=== PATIENT | male | born 1945 | race Caucasian/White ===

== ENCOUNTER 2016-07-20 18:35 | Emergency (ER) | payer MEDICARE ==
[2016-07-20 20:08] LABS: HEMOGLOBIN 11.6 gm/dl (14.0-17.5); RED BLOOD COUNT 3.86 M/UL (4.20-5.50); WHITE BLOOD COUNT 15.6 K/UL (4.5-11.0)
== END 2016-07-20 21:22 | disposition home or self-care (01) ==
LOC: ER1 18:35
PROVIDERS: Emergency Medicine
DX: T78.3XXA Angioneurotic edema, initial encounter (principal); T50.995A Adverse effect of other drugs, medicaments and biological substances, initial encounter
CPT/HCPCS: 80048; 85025; 96374; 96375; 99283; J1100; J1200; J7030

== ENCOUNTER 2016-07-21 23:15 | Inpatient (IN) | payer MEDICARE ==
[~2016-07-21] VITALS: Ht 185.4 cm; Wt 124.7 kg
[2016-07-22 04:30] LABS: HEMOGLOBIN 11.7 gm/dl (14.0-17.5); RED BLOOD COUNT 3.85 M/UL (4.20-5.50)
[2016-07-22] MEDS ORDERED: TOUJEO SQ (09:30)
[2016-07-22] MEDS ORDERED: FERREX 150150 MG PO (09:33)
[2016-07-22] MEDS ORDERED: LISINOPRIL20 MG PO (09:34)
[2016-07-22] MEDS ORDERED: ELIQUIS5 MG PO (10:30)
[2016-07-22] MEDS ORDERED: NITROGLYCERIN6.5 MG PO (10:32)
[2016-07-22] MEDS ORDERED: SENNA8.6 MG PO (10:33)
[2016-07-22] MEDS ORDERED: LEXAPRO10 MG PO (10:35)
[2016-07-22] MEDS ORDERED: NIFEDIPINE ER60 M1 PO (10:38)
[2016-07-22] MEDS ORDERED: CATAPRES-TTS 31 EACH TOP (10:43)
[2016-07-22] MEDS ORDERED: SODIUM BICARBO650 M1 PO (10:44)
[2016-07-22] MEDS ORDERED: CALCITRIOL0.25 MCG PO (10:47)
[2016-07-22] MEDS ORDERED: HUMALOG100 UNIT/3 SQ (10:49)
[2016-07-22] MEDS ORDERED: HYDROCHLOROTHIA25 MG PO (10:50)
[2016-07-22] MEDS ORDERED: PROTONIX 40 MG40 M1 PO (10:51)
[2016-07-22] MEDS ORDERED: PROAIR HFA8.5 GM INH (10:52)
[2016-07-22] MEDS ORDERED: SPIRONOLACTONE25 MG PO (10:52)
[2016-07-22] MEDS ORDERED: ALBUTEROL0.63 MG/3 INH (10:59)
[2016-07-23 07:09] LABS: HEMOGLOBIN 10.9 gm/dl (14.0-17.5); RED BLOOD COUNT 3.64 M/UL (4.20-5.50)
[2016-07-24 04:52] LABS: HEMOGLOBIN 10.6 gm/dl (14.0-17.5); RED BLOOD COUNT 3.56 M/UL (4.20-5.50); WHITE BLOOD COUNT 10.2 K/UL (4.5-11.0)
[2016-07-25 05:08] LABS: HEMOGLOBIN 10.8 gm/dl (14.0-17.5); RED BLOOD COUNT 3.61 M/UL (4.20-5.50); WHITE BLOOD COUNT 9.9 K/UL (4.5-11.0)
[2016-07-25] MEDS ORDERED: CLEOCIN HCL300 MG PO (10:30)
[2016-07-25] MEDS ORDERED: VALTREX1000 MG PO (10:31)
[2016-07-25] MEDS ORDERED: SPIRIVA HANDIH18 MCG INH (10:34)
== END 2016-07-25 10:52 | disposition home or self-care (01) | DRG 603 ==
LOC: ER1 23:15 → ZEROF 07-22 03:45 → M/S 07-22 06:20
PROVIDERS: Emergency Medicine; Family Medicine; ADMIT Internal Medicine
DX: L03.211 Cellulitis of face (principal); L02.01 Cutaneous abscess of face; N18.4 Chronic kidney disease, stage 4 (severe); N04.2 Nephrotic syndrome with diffuse membranous glomerulonephritis; T78.3XXA Angioneurotic edema, initial encounter; E11.22 Type 2 diabetes mellitus with diabetic chronic kidney disease; I25.10 Atherosclerotic heart disease of native coronary artery without angina pectoris; I12.9 Hypertensive chronic kidney disease with stage 1 through stage 4 chronic kidney disease, or unspecified chronic kidney disease; J44.9 Chronic obstructive pulmonary disease, unspecified; Z95.1 Presence of aortocoronary bypass graft; E04.1 Nontoxic single thyroid nodule; B00.9 Herpesviral infection, unspecified; Z79.899 Other long term (current) drug therapy; Z79.4 Long term (current) use of insulin; D72.829 Elevated white blood cell count, unspecified
CPT/HCPCS: 36415; 70490; 80048; 80053; 80202; 82009; 82962; 85025; 85027; 87040; 94640; 94664; 96374; 96375; 99284; J3370; J7030; J7050; J7070

== ENCOUNTER → 2016-09-13 | Outpatient (CLI) | payer MEDICARE ==
[~2016-09-13] MED LIST: ALBUTEROL0.63 MG/3 INH; CALCITRIOL0.25 MCG PO; CATAPRES-TTS 31 EACH TOP; CLEOCIN HCL300 MG PO; ELIQUIS5 MG PO; FERREX 150150 MG PO; HUMALOG100 UNIT/3 SQ; HYDROCHLOROTHIA25 MG PO; LEXAPRO10 MG PO; LISINOPRIL20 MG PO; NIFEDIPINE ER60 M1 PO; NITROGLYCERIN6.5 MG PO; PROAIR HFA8.5 GM INH; PROTONIX 40 MG40 M1 PO; SENNA8.6 MG PO; SODIUM BICARBO650 M1 PO; SPIRIVA HANDIH18 MCG INH; SPIRONOLACTONE25 MG PO; TOUJEO SQ; VALTREX1000 MG PO
== END ==
LOC: HEART 5 14:56
DX: R06.02 Shortness of breath (principal); I48.0 Paroxysmal atrial fibrillation; I10 Essential (primary) hypertension; J44.9 Chronic obstructive pulmonary disease, unspecified; I08.1 Rheumatic disorders of both mitral and tricuspid valves
CPT/HCPCS: 93306